=== PATIENT | female | born 1950 | race Caucasian/White ===

== ENCOUNTER 2018-08-20 08:30 | Day surgery (SDC) | payer OTHER ==
[~2018-08-20 08:30] MED LIST: ACETAMINOPHEN 325 MG TAB PO; ACETYLCHOLINE OPHTH SOLN 1% 2ML (MIOCHOL-E) As Ordered; BSS with VANC/TOB/EPI for EYE CASES IR; CEFUROXIME 1MG/0.1ML INTRACAMERAL INJ As Ordered; HEALON DUET PRO(HEALON 10MG/ML 0.55ML & HEALON ENDOCOAT 30MG/ML 0.85ML) As Ordered; LIDOCAINE 1% SDV 5 ML VIAL As Ordered; PHENYLEPHRINE HCL 10 % OPHTH. SOL 5ML OD; POVIDONE-IODINE 5% OPHTH PREP SOL 30ML As Ordered; PROPARACAINE 0.5% OPHTH SOL 15ML OD
[2018-08-20] MEDS: TROPICAMIDE 1% OPHTH SOLN 2ML OD (09:42)
[2018-08-20] MEDS: PHENYLEPHRINE 2.5% OPHTH SOL 2ML OD (09:42)
[2018-08-20] MEDS: OFLOXACIN 0.3 % (OCUFLOX) OPTH SOL 5ML OD (09:42)
[2018-08-20] MEDS: CYCLOPENTOLATE 2% OPHTH SOLN 2ML BTL OD (09:42)
[2018-08-20] MEDS: LIDOCAINE 3.5 % 1ML OPHTH TOPICAL GEL OU (09:43)
[2018-08-20] MEDS ORDERED: LIDOCAINE 1% SDV 5 ML VIAL As Ordered (11:49)
[2018-08-20] MEDS ORDERED: fentaNYL 100 MCG/2 ML INJECTION (J3010) As Ordered (12:06)
[2018-08-20] MEDS ORDERED: MIDAZOLAM INJ 2 MG/2 ML VIAL (J2250) As Ordered (12:06)
[2018-08-20] MEDS ORDERED: AcetaZOLAMIDE 500 MG ER CAP As Ordered (12:46)
[2018-08-20] MEDS ORDERED: ONDANSETRON 4MG/2ML VIAL (J2405) IV (13:00)
[2018-08-20] MEDS ORDERED: TRIMETHOBENZAMIDE 300 MG CAP PO (13:00)
[2018-08-20] MEDS: AcetaZOLAMIDE 500 MG ER CAP PO (13:00)
[2018-08-20] MEDS ORDERED: KETOROLAC 0.5% OPHTH SOLN OD (13:00)
== END 2018-08-20 13:05 | disposition home or self-care (01) ==
LOC: M SDC 08:30
DX: H25.9 Unspecified age-related cataract (principal); H40.811 Glaucoma with increased episcleral venous pressure, right eye; I10 Essential (primary) hypertension; E78.5 Hyperlipidemia, unspecified; F41.9 Anxiety disorder, unspecified; F17.210 Nicotine dependence, cigarettes, uncomplicated; Z79.82 Long term (current) use of aspirin; Z79.899 Other long term (current) drug therapy
CPT/HCPCS: 66984

== ENCOUNTER 2018-08-27 07:38 | Day surgery (SDC) | payer OTHER ==
[~2018-08-27] VITALS: Ht 167.6 cm; Wt 65.3 kg
[~2018-08-27 07:38] MED LIST changes: -ACETAMINOPHEN 325 MG TAB PO; +ACETAMINOPHEN 325 MG TAB PO PRN; -ACETYLCHOLINE OPHTH SOLN 1% 2ML (MIOCHOL-E) As Ordered; +ALPR0.25 PO; +ASPI1TAB PO; -BSS with VANC/TOB/EPI for EYE CASES IR; +BSS with VANC/TOB/EPI for EYE CASES IR ONE; -CEFUROXIME 1MG/0.1ML INTRACAMERAL INJ As Ordered; +CEFUROXIME 1MG/0.1ML INTRACAMERAL INJ As Ordered ONE; +CYCLOPENTOLATE 2% OPHTH SOLN 2ML BTL OS ONE; +DULO1CAP3 PO; +ESTR2TAB2 PO; -HEALON DUET PRO(HEALON 10MG/ML 0.55ML & HEALON ENDOCOAT 30MG/ML 0.85ML) As Ordered; +HEALON DUET PRO(HEALON 10MG/ML 0.55ML & HEALON ENDOCOAT 30MG/ML 0.85ML) As Ordered ONE; -LIDOCAINE 1% SDV 5 ML VIAL As Ordered; +LIDOCAINE 1% SDV 5 ML VIAL As Ordered ONE; +LIDOCAINE 3.5 % 1ML OPHTH TOPICAL GEL OU ONE; +LOSA100T8 PO; +MIDAZOLAM INJ 2 MG/2 ML VIAL (J2250) As Ordered ONE; +MOXIFLOXACIN IN BSS 0.25MG/0.25ML INTRACAMERAL INJ (OR EYE ONLY)(J2280) As Ordered ONE; +OFLOXACIN 0.3 % (OCUFLOX) OPTH SOL 5ML OS ONE; +PHENYLEPHRINE 2.5% OPHTH SOL 2ML OS ONE; -PHENYLEPHRINE HCL 10 % OPHTH. SOL 5ML OD; +PHENYLEPHRINE HCL 10 % OPHTH. SOL 5ML OS PRN; -POVIDONE-IODINE 5% OPHTH PREP SOL 30ML As Ordered; +POVIDONE-IODINE 5% OPHTH PREP SOL 30ML As Ordered ONE; -PROPARACAINE 0.5% OPHTH SOL 15ML OD; +PROPARACAINE 0.5% OPHTH SOL 15ML OS PRN; +SIMV10TA2 PO; +TRIAMCINOLONE PRES FR 40 MG/ML 1ML(TRIESENCE)(OR EYE ONLY)(J3300 PER 1MG) As Ordered ONE; +TROPICAMIDE 1% OPHTH SOLN 2ML OS ONE; +VITA500046 PO; +fentaNYL 100 MCG/2 ML INJECTION (J3010) As Ordered ONE
[2018-08-27] MEDS ORDERED: HEALON DUET PRO(HEALON 10MG/ML 0.55ML & HEALON ENDOCOAT 30MG/ML 0.85ML) As Ordered ONE (09:51)
[2018-08-27] MEDS ORDERED: PROPOFOL 200 MG/20 ML VIAL As Ordered ONE (09:55)
[2018-08-27] MEDS ORDERED: ACETAMINOPHEN 325 MG TAB As Ordered ONE (10:11)
[2018-08-27] MEDS ORDERED: AcetaZOLAMIDE 500 MG ER CAP As Ordered ONE (10:11)
[2018-08-27 10:30] VITALS: BP 184/86
[2018-08-27] MEDS ORDERED: TRIMETHOBENZAMIDE 300 MG CAP PO PRN (10:30)
[2018-08-27] MEDS ORDERED: ONDANSETRON 4MG/2ML VIAL (J2405) IV PRN (10:30)
[2018-08-27] MEDS ORDERED: AcetaZOLAMIDE 500 MG ER CAP PO ONE (10:30)
[2018-08-27] MEDS ORDERED: KETOROLAC 0.5% OPHTH SOLN OS ONE (10:30)
--- NOTE | 2018-09-24 11:17 | RO ---
DATE OF PROCEDURE: 08/27/2018 PREPROCEDURE DIAGNOSIS: Glaucoma and cataract, left eye. POSTPROCEDURE DIAGNOSIS: Glaucoma and cataract, left eye. PROCEDURE: Femtosecond laser and phacoemulsification of the intraocular lens with lens implantation of AU00T0 23 diopters along with endocyclophotocoagulation, placement of the Glaukos iStent and Optiwave refractory analysis (ORA). SURGEON: Kayleigh Lilly MD DEPUTY GENERAL COUNSEL: None. ANESTHESIA: Local IV standby. COMPLICATIONS: None. DESCRIPTION OF PROCEDURE: The patient was brought to the operating room and laid in supine position. The eye was prepped and draped in a sterile fashion for ophthalmic surgery. The patient was first brought to the laser room. After adequate patient suction and patient interface placement, the laser was activated, OCT images were then reviewed and the capsulorrhexis lens fragmentation primary, secondary and arcuate corneal incisions were make according to plan. After the laser was finished, suction was released and patient was brought to the operating room. Again the eye was prepped and draped in a sterile fashion for ophthalmic surgery and a lid speculum was placed. The primary, secondary corneal incision and arcuate incision was opened per plan followed by removal of the capsulorrhexis. Hydrodissection was then followed by phacoemulsification in a divide and conquer method within the capsular bag. This was followed by aspiration of the cortical material with irrigation and aspiration cannula. Healon was then placed in the capsular bag. Intraocular pressure was checked and was noted to be adequate and multiple ORA calculations were then taken and intraocular lens power chosen and inserted in the capsular bag, which was AU00T0, 23 diopters. After this Healon was placed in the ciliary sulcus to visualize the ciliary processes on the video screen with the help of the EndoProbe and endocyclophotocoagulation was done 280 degrees with the help of the EndoProbe at 0.25 mW. Good results were noted on the video screen as seen by the shrinking of the ciliary processes. After this, Healon was then placed in the anterior chamber to visualize the trabecular mesh work under high magnification with the patient's head turned away from the surgeon, microscope towards the surgeon. This was done with the help of the Gonio lens. Glaukos iStent was then placed. Good blood reflex was noted. Excess viscoelastic was then aspirated. The wound was hydrated and no leaks were noted. Intracameral cefuroxime was given. Lid speculum was removed and patient was returned to the recovery room in stable condition.
== END 2018-08-27 10:40 | disposition home or self-care (01) ==
LOC: M SDC 07:38
PROVIDERS: ATTEND Ophthalmology
DX: H26.9 Unspecified cataract (principal); H40.9 Unspecified glaucoma; I10 Essential (primary) hypertension; E78.5 Hyperlipidemia, unspecified; E55.9 Vitamin D deficiency, unspecified; F34.1 Dysthymic disorder; F41.9 Anxiety disorder, unspecified; Z79.899 Other long term (current) drug therapy; Z72.0 Tobacco use; Z90.710 Acquired absence of both cervix and uterus; Z98.41 Cataract extraction status, right eye
CPT/HCPCS: 66183; 66711; 66984; C1783; J2250; J2280; J3010